=== PATIENT | female | born 1990 | race African-American/Black ===

== ENCOUNTER 2018-12-17 02:04 | Observation (INO) | payer MEDICAID ==
[~2018-12-17] VITALS: Ht 160 cm; Wt 97.5 kg
[2018-12-17] VITALS (7 sets, daily range): BP systolic 133–163; BP diastolic 102–117
[2018-12-17] MEDS ORDERED: MORPHINE SULFATE 10 MG/ML VIAL. IV PRN (03:00)
[2018-12-17] MEDS: MORPHINE SULFATE 4 MG/ML VIAL. IV PRN ×3 (03:28→10:20)
[2018-12-17] MEDS: IV RINGERS,LACTATED 1000ML 1,000 ML IV SCH ×4 (03:29→23:00)
[2018-12-17] MEDS ORDERED: METO25TA4 PO (04:42)
[2018-12-17] MEDS ORDERED: PARO40TA3 PO (07:45)
[2018-12-17] MEDS ORDERED: METO-239 PO (09:00)
[2018-12-17] MEDS ORDERED: fentaNYL PF VIAL 100 MCG/2 ML VIAL IV PRN (09:45)
[2018-12-17] MEDS ORDERED: PROCHLORPERAZINE 10 MG/2 ML VIAL. IV PRN ×2 (09:45→18:15)
[2018-12-17] MEDS ORDERED: ONDANSETRON PF 4 MG/2 ML VIAL. IV PRN ×2 (09:45→18:15)
[2018-12-17] MEDS ORDERED: MORPHINE SULFATE 2 MG/ML VIAL. IV PRN ×2 (09:45→19:15)
[2018-12-17] MEDS ORDERED: HYDROmorphone 2 MG/ML VIAL IV PRN (09:45)
[2018-12-17] MEDS ORDERED: LIDOCAINE 1% PF 2 ML VIAL. ID PRN (09:45)
[2018-12-17] MEDS ORDERED: IV RINGERS,LACTATED 1000ML 1,000 ML IV SCH (10:00)
[2018-12-17] MEDS: METOPROLOL SUCC 24HR ER 25 MG TAB.ER.24H. PO SCH (10:01)
[2018-12-17] MEDS: amLODIPine BESYLATE 10 MG TABLET PO SCH (10:08)
--- NOTE | 2018-12-17 10:37 | PDOC2 ---
CONSULT Date of Consult Date of Consult DATE: 12/17/18 TIME: 10:34 Reason for Consult Reason for Consult: ovarian cyst Referring Physician Referring Physician: Dr. Redd Identification/Chief Complaint Chief Complaint abd pain Source Source: Chart review, Patient History of Present Illness Reason for Visit: 28 y/o presented to [facility] with c/o pelvic pain that continued to worsen in the past few days. She had h/o ROV complex cyst. Recent pelvic sono indicated possible rupture of ROV cyst with some fluid in the pelvic culde sac. Pelvic sono reviewed with patient. Past Medical History Cardiovascular: No pertinent hx Pulmonary: No pertinent hx GI: No pertinent hx Heme/Onc: No pertinent hx Psych: No pertinent hx Past Surgical History Past Surgical History: No pertinent history Current Medications Current Medications Current Medications Ringer's Solution 1,000 ml @ 150 mls/hr Q6H40M IV Last administered on 12/17/18at 10:19; Start 12/17/18 at 03:00 Morphine Sulfate (Morphine Sulfate) 6 mg PRN Q2HR PRN IV PAIN; Start 12/17/18 at 03:00; Stop 12/17/18 at 03:07; Status DC Morphine Sulfate (Morphine Sulfate) 6 mg PRN Q2HR PRN IV PAIN Last administered on 12/17/18at 10:20; Start 12/17/18 at 03:07 Metoprolol Succinate (Toprol Xl) 25 mg DAILY PO Last administered on 12/17/18at 10:01; Start 12/17/18 at 09:00 Ondansetron HCl (Zofran) 4 mg PRN Q6HRS PRN IV NAUSEA/VOMITING; Start 12/17/18 at 09:45; Stop 12/17/18 at 19:00 Fentanyl Citrate (Fentanyl 2ml Vial) 25 mcg PRN Q5MIN PRN IV MILD PAIN 1-3; Start 12/17/18 at 09:45; Stop 12/17/18 at 19:00 Fentanyl Citrate (Fentanyl 2ml Vial) 50 mcg PRN Q5MIN PRN IV MODERATE TO SEVERE PAIN; Start 12/17/18 at 09:45; Stop 12/17/18 at 19:00 Morphine Sulfate (Morphine Sulfate) 1 mg PRN Q10MIN PRN IV SEVERE PAIN 7-10; Start 12/17/18 at 09:45; Stop 12/17/18 at 19:00 Ringer's Solution 1,000 ml @ 30 mls/hr Q24H IV ; Start 12/17/18 at 10:00; Stop 12/17/18 at 19:00; Status Cancel Lidocaine HCl (Xylocaine-Mpf 1% 2ml Vial) 2 ml PRN 1X PRN ID PRIOR TO IV START; Start 12/17/18 at 09:45; Stop 12/17/18 at 19:00 Hydromorphone HCl (Dilaudid) 0.5 mg PRN Q10MIN PRN IV SEV PAIN, Second choice; Start 12/17/18 at 09:45; Stop 12/17/18 at 19:00 Prochlorperazine Edisylate (Compazine) 5 mg PACU PRN PRN IV NAUSEA, MRX1; Start 12/17/18 at 09:45; Stop 12/17/18 at 19:00 Amlodipine Besylate (Norvasc) 10 mg DAILY PO Last administered on 12/17/18at 10:08; Start 12/17/18 at 10:30 Active Scripts Active Reported Metoprolol Succinate ( Xl ) (Metoprolol Succinate) 25 Mg Tab.er.24h 25 Mg PO DAILY Paroxetine Hcl 40 Mg Tablet 40 Mg PO HS Allergies Allergies: Coded Allergies: lisinopril (Verified Allergy, Intermediate, 12/17/18) lactose (Verified Adverse Reaction, Unknown, 12/17/18) ROS General: YES: Fatigue; No: Chills, Night Sweats, Malaise, Appetite, Other PSYCHOLOGICAL ROS: YES: Anxiety; No: Behavioral Disorder, Concentration difficultie, Decreased libido, Depression, Disorientation, Hallucinations, Hostility, Irritablity, Memory difficulties, Mood Swings, Obsessive thoughts, Physical abuse, Sexual abuse, Sleep disturbances, Suicidal ideation, Other Eyes: No Blurry vision, No Decreased vision, No Double vision, No Dry eyes, No Excessive tearing, No Eye Pain, No Itchy Eyes, No Loss of vision, No Photophobia, No Scotomata, No Uses contacts, No Uses glasses, No Other HEENT: No: Heacaches, Visual Changes, Hearing change, Nasal congestion, Nasal discharge, Oral lesions, Sinus pain, Sore Throat, Epistaxis, Sneezing, Snoring, Tinnitus, Vertigo, Vocal changes, Other ALLERGY AND IMMUNOLOGY: No: Hives, Insect Bite Sensitivity, Itchy/Watery Eyes, Nasal Congestion, Post Nasal Drip, Seasonal Allergies, Other Hematological and Lymphatic: No: Bleeding Problems, Blood Clots, Blood Transfusions, Brusing, Night Sweats, Pallor, Swollen Lymph Nodes, Other ENDOCRINE: No: Breast Changes, Galactorrhea, Hair Pattern Changes, Hot Flashes, Malaise/lethargy, Mood Swings, Palpitations, Polydipsia/polyuria, Skin Changes, Temperature Intolerance, Unexpected Weight Changes, Other Breast: No New/Changing Breast Lumps, No Nipple changes, No Nipple discharge, No Other Respiratory: No: Cough, Hemoptysis, Orthopnea, Pleuritic Pain, Shortness of breath, SOB with excertion, Sputum Changes, Stridor, Tachypnea, Wheezing, Other Cardiovascular: No Chest Pain, No Palpitations, No Orthopnea, No Paroxysmal Noc. Dyspnea, No Edema, No Lt Headedness, No Other Gastrointestinal: Yes Nausea, Yes Abdominal Pain Genitourinary: No Dysuria, No Frequency, No Incontinence, No Hematuria, No Retention, No Discharge, No Urgency, No Pain, No Flank Pain, No Other, No , No , No , No , No , No , No Physical Exam General: Alert, Oriented X3, Cooperative HEENT: Atraumatic Lungs: Clear to auscultation Heart: Regular rate Abdomen: Normal bowel sounds, Soft, No masses, Other (diffuse lower abd tenderness) Extremities: No edema Psych/Mental Status: Mental status NL Vitals VITALS Vital Signs Date Time Temp Pulse Resp B/P (MAP) Pulse Ox O2 Delivery O2 Flow Rate FiO2 12/17/18 10:20 Room Air 12/17/18 10:08 60 147/105 12/17/18 02:00 98.1 16 100 98.1 Assessment/Plan Assessment/Plan A: ROV complex cyst with possible rupture P: Plan for LPSC RSO today. DAVID SMITH Jr, MD Dec 17, 2018 10:37
[2018-12-17] MEDS ORDERED: DEXAMETHASONE SOD PHOS 4 MG/ML VIAL ONE (16:13)
[2018-12-17] MEDS ORDERED: SUCCINYLCHOLINE 200 MG/10 ML VIAL. ONE (16:13)
[2018-12-17] MEDS ORDERED: fentaNYL PF VIAL 100 MCG/2 ML VIAL ONE ×2 (16:13→19:14)
[2018-12-17] MEDS ORDERED: PROPOFOL 20 ML IV ONE (16:13)
[2018-12-17] MEDS ORDERED: ONDANSETRON PF 4 MG/2 ML VIAL. ONE (16:13)
[2018-12-17] MEDS ORDERED: LIDOCAINE 2% PF 5 ML VIAL. ONE (16:13)
[2018-12-17] MEDS ORDERED: ROCURONIUM 50 MG/5 ML VIAL. ONE (16:13)
[2018-12-17] MEDS ORDERED: SURGICEL HEMOSTAT 4X8 EACH. ONE (16:40)
[2018-12-17] MEDS: fentaNYL PF VIAL 100 MCG/2 ML VIAL IV PRN ×3 (16:44→18:49)
[2018-12-17] MEDS ORDERED: BUPIVACAINE-EPI 0.25%-1:200000 MPF 30 ML VIAL. INJ ONE (17:00)
--- NOTE | 2018-12-17 17:14 | NUR ---
pt had full bag of fluids when transferred down to surgery so no need for this bag at 1620. will reevaluate after surgery and pt returns to floor
[2018-12-17] MEDS ORDERED: GLYCOPYRROLATE 1 MG/5 ML VIAL. ONE (17:45)
[2018-12-17] MEDS ORDERED: NEOSTIGMINE METHYLSULFATE 5 MG/5 ML SYRINGE. ONE (17:45)
[2018-12-17] MEDS ORDERED: KETOROLAC 30 MG/ML VIAL. ONE (17:45)
[2018-12-17] MEDS ORDERED: SEVOFLURANE 61 TO 120 MINUTES. IH ONE (17:50)
--- NOTE | 2018-12-17 18:08 | PDOC ---
BRIEF OPERATIVE NOTE Date: Dec 17, 2018 Pre-Op Diagnosis ROV Complex Cyst Post-Op Diagnosis Same Procedure [facility] Fontana Anesthesia Type: General Blood Loss 10 ml Specimens Obtained Right fallopian tube and Right ovary Findings nml size uterus, nml JAMES, nml Left fallopian tube; ROV complex cyst 5 cm size Complications none Operative Note see dictation DAVID FONTANA Jr, MD Dec 17, 2018 18:07
[2018-12-17] MEDS ORDERED: diphenhydrAMINE 50 MG/ML VIAL IV PRN (18:15)
[2018-12-17] MEDS ORDERED: CALCIUM CARBONATE 500 MG TAB.CHEW PO PRN (18:15)
[2018-12-17] MEDS ORDERED: DEXTROSE 50% 25 GM / 50ML DISP.SYRIN. IV PRN (18:15)
[2018-12-17] MEDS ORDERED: 0.9 % SODIUM CHLORIDE 10 ML DISP.SYRIN. IV PRN (18:15)
[2018-12-17] MEDS ORDERED: KETOROLAC 30 MG/ML VIAL. IV PRN (18:15)
[2018-12-17] MEDS ORDERED: ZOLPIDEM 5 MG TABLET. PO PRN (18:15)
[2018-12-17] MEDS ORDERED: diphenhydrAMINE HCL 25 MG CAPSULE PO PRN (18:15)
[2018-12-17] MEDS ORDERED: fentaNYL PF VIAL 100 MCG/2 ML VIAL IVP ONE (19:10)
[2018-12-17] MEDS ORDERED: MORPHINE SULFATE 2 MG/ML VIAL. ONE (19:14)
[2018-12-17] MEDS: oxyCODONE/APAP 5/325 1 TAB TABLET PO PRN (19:25)
--- NOTE | 2018-12-17 19:47 | OP ---
DATE OF SURGERY: 12/17/2018 PREOPERATIVE DIAGNOSIS: Right ovarian complex cyst. POSTOPERATIVE DIAGNOSES: Right ovarian complex cyst. PROCEDURE: Laparoscopic RSO. SURGEON: David Fontana MD ANESTHESIA: GETA. ESTIMATED BLOOD LOSS: 10 mL. COMPLICATIONS: None. FINDINGS: Normal size uterus, normal left ovary, normal left fallopian tube, right ovarian complex cyst of about 5 cm size, normal right fallopian tube. SUMMARY: A 28-year-old 1, para 1, who represented with pelvic pain, pelvic sonogram indicated ruptured right ovarian complex cyst. The patient was counseled on the risks, benefits and expectations of laparoscopic RSO and voiced clear understanding to proceed. DESCRIPTION OF PROCEDURE: The patient was taken to surgery suite and placed in dorsal lithotomy position. She was prepped with Betadine solution for vaginal prep and ChloraPrep for abdominal prep. After adequate anesthesia, bivalve speculum was placed vaginally. The anterior lip of the cervix grasped with single tooth tenaculum. The uterine acorn manipulator was then placed. The bivalve speculum was removed. Attention was now placed on abdomen. Small transverse skin incision was made just below the umbilicus with a scalpel. The Veress needle was then placed through the infraumbilical incision site. The abdomen was allowed to insufflate with CO2 gas up to 1-1/2 liters. The Veress needle was then removed, 5 mm trocar was placed. The scope was positioned. The uterus was normal. Left fallopian tube and ovary were normal. Right fallopian tube appeared normal. Right ovary demonstrated a complex cyst at least 5 cm size that had been ruptured with minimal bleeding with additional incision sites in the left lower quadrant. A 5-mm trocar was placed as well as a 12 mm trocar placed in the midline just 2 fingerbreadths above the pubic symphysis. With the aid of Win graspers and EnSeal device, the right infundibulopelvic ligament was coagulated and dissected. The right utero-ovarian pedicle was coagulated and dissected. The rest of the right adnexa was dissected away from the right pelvic sidewall. The right fallopian tube and ovary were then removed with the Endobag. The pedicle was hemostatic. Suction irrigation was utilized to verify good hemostasis. A small amount of normal saline was left in posterior cul-de-sac. The right fallopian tube and ovary were removed with Endobag and the trocars were then removed under direct visualization. The abdomen was allowed to deflate as much as possible along with mechanical manipulation. The 12 mm trocar site was closed at the fascial layer using 2-0 Vicryl suture in a [id number] manner. The three skin incisions were closed at the skin level using 4-0 Vicryl suture in subcuticular manner. A 0.25% Marcaine with epinephrine was injected at each incision site. The uterine acorn manipulator and single tooth tenaculum was then removed. The patient tolerated the procedure well and was taken to recovery room in stable condition. Sponge and needle count correct x 3. DAVID FONTANA MD DR: LANCE/marguerite JOB#: [id number] / [id number]
[2018-12-17] MEDS: GABAPENTIN 300 MG CAPSULE. PO SCH (22:42)
[2018-12-18] MEDS: oxyCODONE/APAP 5/325 1 TAB TABLET PO PRN ×3 (01:04→13:10)
[2018-12-18] MEDS: IV RINGERS,LACTATED 1000ML 1,000 ML IV SCH (03:22)
[2018-12-18] MEDS: SIMETHICONE 80 MG TAB.CHEW PO PRN ×2 (03:26→13:10)
[2018-12-18 04:08] VITALS: BP 145/107
[2018-12-18 04:44] LABS: BASO % 0 % (0-3); EOS % 0 % (0-3); HEMATOCRIT 43.5 % (36.0-47.0); LYMPH # 0.6 x10^3/uL (1.0-4.8); LYMPH % 8 % (24-48); MEAN CORPUSCULAR HEMOGLOBIN 31 pg (25-35); MEAN CORPUSCULAR HGB CONC 34 g/dL (31-37); MEAN CORPUSCULAR VOLUME 90 fL (79-100); MONO # 0.2 x10^3/uL (0.0-1.1); MONO % 3 % (0-9); NEUT # 6.6 x10^3/uL (1.8-7.7); NEUT % 89 % (31-73); PLATELET COUNT 189 x10^3/uL (140-400); RED BLOOD COUNT 4.87 x10^6/uL (3.50-5.40); RED CELL DISTRIBUTION WIDTH 15.4 % (11.5-14.5); WHITE BLOOD COUNT 7.5 x10^3/uL (4.0-11.0)
[2018-12-18] MEDS ORDERED: DOCUSATE SODIUM 100 MG CAPSULE. PO PRN (05:30)
[2018-12-18] MEDS: GABAPENTIN 300 MG CAPSULE. PO SCH (05:58)
[2018-12-18 07:51] LABS: % BANDS 2 % (0-9); % LYMPHS 11 % (24-48); % MONOS 2 % (0-10); % SEGS 85 % (35-66); PLT ESTIMATE ADEQUATE (ADEQUATE)
[2018-12-18] MEDS: METOPROLOL SUCC 24HR ER 25 MG TAB.ER.24H. PO SCH (09:23)
[2018-12-18] MEDS: amLODIPine BESYLATE 10 MG TABLET PO SCH (09:24)
[2018-12-18] MEDS ORDERED: BENZOCAINE/MENTHOL LOZENGE. PO PRN (09:30)
[2018-12-18] MEDS ORDERED: fentaNYL PF VIAL 100 MCG/2 ML VIAL IVP PRN (09:30)
--- NOTE | 2018-12-18 11:49 | HP ---
ADMIT DATE: 12/18/2018 REASON FOR CONSULTATION: Medical management. HISTORY OF PRESENT ILLNESS: The patient is a 28-year-old -[place] female patient who presented to [facility] with a complaint of pelvic pain that continued to worsen in the past few days. She has got a history of right ovarian complex cyst. Recent pelvic sonogram indicated possible rupture of right ovarian cyst and some fluid in the pelvic cul-de-sac, and therefore, she was transferred to [facility] to consult the commercial illustrator. PAST MEDICAL HISTORY: Significant for hypertension, anxiety. PAST SURGICAL HISTORY: Significant for Castleman disease diagnosed in 2006. At that time, she was transferred to [facility] and underwent lymphadenectomy. ALLERGIES: She is allergic to LISINOPRIL and LACTOSE. MEDICATIONS: She is currently on metoprolol succinate 25 mg once a day, paroxetine 40 mg once a day as well as Norvasc and Percocet. FAMILY HISTORY: She has one brother who is older and has schizophrenia and bipolar disorder. Father is alive at age of 55, has diabetes and bipolar disorder. Mother is alive at age of 49, has hypothyroidism. SOCIAL HISTORY: She is single, has one daughter. She does not smoke. Drinks alcohol occasionally. Does not do any drugs. 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 PHYSICAL EXAMINATION: GENERAL: When I saw her this morning, she looked well and was clearly in no apparent respiratory distress. No pallor, jaundice, cyanosis. No thyromegaly. No jugular venous distention. No limb edema. VITAL SIGNS: Her heart rate was 80, blood pressure was 145/107, temperature was 97.6, respiratory rate was 16, and oxygen saturation was 99% on room air. HEAD, EYES, EARS, NOSE AND THROAT: Showed normocephalic, atraumatic. NECK: Supple. HEART: Showed normal first and second heart sounds with no gallop, rub or murmur. CHEST: Clear to auscultation. No crepitation or rhonchi. ABDOMEN: Distended, soft, nontender. No guarding or rigidity. No organomegaly. All hernial orifice intact. Bowel sounds normal. NEUROLOGIC: She was awake, alert, responding appropriately. All cranial nerves intact. EXTREMITIES: She moves extremities without difficulty. She ambulates without assistance or assistive devices. LABORATORY DATA: Her lab work showed a white cell count 7500, hemoglobin 15, hematocrit 44, MCV 90 and platelet count of 189,000. ASSESSMENT AND PLAN: This is a 28-year-old -[place] female patient who underwent laparoscopic right salpingo-oophorectomy successfully. Intraoperative findings showed that she has right ovarian complex cyst about 5 cm in size with normal right fallopian tube, normal sized uterus, normal left ovary and normal left fallopian tube. Other medical problems include hypertension, for which she is on metoprolol and Norvasc and anxiety, for which she is on paroxetine. She has also some sore throat, for which she was started on Cepacol lozenges, and as she is still having pain, we will add fentanyl 50 mcg IV every 3 hours for the time being. RENETTA GUPTA MD DR: LON/marguerite JOB#: [id number] / [id number]
--- NOTE | 2018-12-18 12:30 | PDOC ---
SURGICAL PROGRESS NOTE Subjective Pt. feeling well. No complaints. Vital Signs Vital Signs Date Time Temp Pulse Resp B/P (MAP) Pulse Ox O2 Delivery O2 Flow Rate FiO2 12/18/18 10:48 Room Air 12/18/18 09:24 84 151/104 12/18/18 05:58 99 12/18/18 04:08 97.6 16 97.6 12/17/18 18:18 10. I&O Intake and Output 12/18/18 07:00 Intake Total 1550 ml Output Total 1910 ml Balance -360 ml Intake Oral 700 ml IV Total 850 ml Output Urine Total 1900 ml Estimated Blood Loss 10 ml # Voids 2 PATIENT HAS A HERNADEZ: No General: Alert, Oriented X3, Cooperative HEENT: Atraumatic Lungs: Clear to auscultation Heart: Regular rate Abdomen: Normal bowel sounds, Soft, No masses Psych/Mental Status: Mental status NL Labs Laboratory Tests Test 12/18/18 03:40 White Blood Count 7.5 x10^3/uL (4.0-11.0) Red Blood Count 4.87 x10^6/uL (3.50-5.40) Hemoglobin 15.0 g/dL (12.0-15.5) Hematocrit 43.5 % (36.0-47.0) Mean Corpuscular Volume 90 fL (79-100) Mean Corpuscular Hemoglobin 31 pg (25-35) Mean Corpuscular Hemoglobin Concent 34 g/dL (31-37) Red Cell Distribution Width 15.4 % (11.5-14.5) Platelet Count 189 x10^3/uL (140-400) Neutrophils (%) (Auto) 89 % (31-73) Lymphocytes (%) (Auto) 8 % (24-48) Monocytes (%) (Auto) 3 % (0-9) Eosinophils (%) (Auto) 0 % (0-3) Basophils (%) (Auto) 0 % (0-3) Neutrophils # (Auto) 6.6 x10^3/uL (1.8-7.7) Lymphocytes # (Auto) 0.6 x10^3/uL (1.0-4.8) Monocytes # (Auto) 0.2 x10^3/uL (0.0-1.1) Eosinophils # (Auto) 0.0 x10^3/uL (0.0-0.7) Basophils # (Auto) 0.0 x10^3/uL (0.0-0.2) Segmented Neutrophils % 85 % (35-66) Band Neutrophils % 2 % (0-9) Lymphocytes % 11 % (24-48) Monocytes % 2 % (0-10) Platelet Estimate Adequate (ADEQUATE) Large Platelets Occ Laboratory Tests Test 12/18/18 03:40 White Blood Count 7.5 x10^3/uL (4.0-11.0) Red Blood Count 4.87 x10^6/uL (3.50-5.40) Hemoglobin 15.0 g/dL (12.0-15.5) Hematocrit 43.5 % (36.0-47.0) Mean Corpuscular Volume 90 fL (79-100) Mean Corpuscular Hemoglobin 31 pg (25-35) Mean Corpuscular Hemoglobin Concent 34 g/dL (31-37) Red Cell Distribution Width 15.4 % (11.5-14.5) Platelet Count 189 x10^3/uL (140-400) Neutrophils (%) (Auto) 89 % (31-73) Lymphocytes (%) (Auto) 8 % (24-48) Monocytes (%) (Auto) 3 % (0-9) Eosinophils (%) (Auto) 0 % (0-3) Basophils (%) (Auto) 0 % (0-3) Neutrophils # (Auto) 6.6 x10^3/uL (1.8-7.7) Lymphocytes # (Auto) 0.6 x10^3/uL (1.0-4.8) Monocytes # (Auto) 0.2 x10^3/uL (0.0-1.1) Eosinophils # (Auto) 0.0 x10^3/uL (0.0-0.7) Basophils # (Auto) 0.0 x10^3/uL (0.0-0.2) Segmented Neutrophils % 85 % (35-66) Band Neutrophils % 2 % (0-9) Lymphocytes % 11 % (24-48) Monocytes % 2 % (0-10) Platelet Estimate Adequate (ADEQUATE) Large Platelets Occ Problem List Problems Medical Problems: (1) Ovarian cyst, right Status: Acute Assessment/Plan A: POD#1 s/p LPSC RSO P: D/c home. DAVID SMITH Jr, MD Dec 18, 2018 12:30
[2018-12-18] MEDS ORDERED: OXYC1TAB15 PO (12:31)
--- NOTE | 2018-12-18 12:32 | DISCH ---
DISCHARGE INSTRUCTIONS Condition on Discharge Condition on Discharge: Stable Activity After Discharge Activity Instructions for Disc: Activity as tolerated Lifting Instructions after Dis: No heavy lifting Driving Instructions after Dis: Do not drive today Diet after Discharge Diet after Discharge: Regular Contacting the DRBarbie after DC Call your doctor for: If your condition worsens Follow-Up Follow up with: Dr. Fontana in 1 wk DAVID FONTANA Jr, MD Dec 18, 2018 12:32
[2018-12-18 13:22] VITALS: BP 160/110
[2018-12-18 14:30] VITALS: BP 146/102
[2018-12-18] MEDS ORDERED: FLU VAX QS 2019-20 (36MOS+)/PF 0.5 ML SYRINGE. VAX IM ONE (14:45)
--- NOTE | 2018-12-18 15:36 | NUR ---
Hypertension Dr Fontana called at 1430 regarding multiple high blood pressures, see flow sheet. Patient states she has medications at home and does need script. Orders for patient to follow up this week with Primary care doctor regarding BP medication, then follow up in his office in 1 week. Patient educated on s/s of high blood pressure, verbalized understanding.
--- NOTE | 2018-12-18 16:31 | NUR ---
Discharge Discharge and incisional care instructions given to patient at this time, no questions or concerns noted. Patient ambulated off unit with all belongings.
--- NOTE | 2018-12-19 23:06 | PATHOLOGY ---
[facility] Accession Number: [id number] . 01 Material submitted: . ovary - RIGHT OVARY AND FALLOPIAN TUBE. Modifiers: right . 01 Clinical history: . Right ovary complex cyst. . 02 Diagnosis: "Right ovary and right fallopian tube", right salpingo-oophorectomy: - Ovary, right, with multiple follicular cysts, one hemorrhagic follicular cyst, resolving corpus luteum and corpora albicantia. - Fallopian tube, right, with paratubal cysts. . (CLW:mm; 12/19/2018) [facility] 12/19/2018 1629 Local . 02 Electronically signed: . Mildred Medina MD, Pathologist NPI- [id number] . 01 Gross description: . Received in formalin labeled "Justin Gloria, right ovary and right fallopian tube" is a salpingo-oophorectomy specimen consisting of an intact pink-ashley ovary weighing 20 g and measuring 5.2 x 3.5 x 2.3 cm. The external surface is slightly nodular and cystic in appearance, and the ovary is sectioned to reveal a multicystic cut surface, with cysts ranging from 0.2-1.7 cm in greatest dimension. The cysts contain clear watery fluid, with one cyst containing mucinous fluid and one cysts containing hemorrhagic material. No papillary excrescences are identified. The uninvolved ovarian parenchyma is ashley-white and homogeneous. Attached to the ovary is a pink-ashley submitted fallopian tube measuring 5.0 cm in length and 0.6 cm in diameter. The external surface is smooth with multiple paratubal cysts ranging from 0.1-0.2 cm. Upon sectioning, the fallopian tube displays a pinpoint lumen. Roofing Apprentice sections of the specimen are submitted as follows: A1-A5 dental sales representative ovary A6 dental sales representative fallopian tube and entire fimbriated end ([facility]; 12/18/2018) [facility] 12/18/2018 1722 Local . 02 Pathologist provided ICD-10: N83.01, N83.8 . 02 CPT . 911340 Specimen Comment: A courtesy copy of this report has been sent to [phone], [phone] Specimen Comment: [id number] Specimen Comment: Report sent to / DR ZAMARRIPA Performed at: [facility] [address] [facility] [address], [place] [id number] MD Johan Hudson MD Phone: [phone] Performed at: 02 [facility] [address] [place], [place] [id number] MD Flaco Quijano MD Phone: [phone]
== END 2018-12-18 16:41 | disposition home or self-care (01) ==
LOC: INTOOBSV 02:04 → 3 NORTH 02:04
PROVIDERS: ADMIT Obstetrics & Gynecology; ATTEND Obstetrics & Gynecology
DX: N83.291 Other ovarian cyst, right side (principal); I10 Essential (primary) hypertension; F41.9 Anxiety disorder, unspecified; Z23 Encounter for immunization
CPT/HCPCS: 36415; 58661; 85007; 85025; 88305; 90471; 90686; 96374; 96375; 96376; A7015; G0378; G0379; J0330; J0696; J1100; J1885; J2001; J2270; J2704; J2710; J3010; J3490; J7030; J7120; J2405

== ENCOUNTER 2019-08-19 17:17 | Emergency (ER) | payer MEDICAID ==
[~2019-08-19] VITALS: Ht 170.2 cm; Wt 95.0 kg
[~2019-08-19 17:17] MED LIST: METO-239 PO; METO25TA4 PO; OXYC1TAB15 PO; PARO40TA3 PO
--- NOTE | 2019-08-19 18:31 | PHYS DOC ---
Past Medical History Past Medical History: Hypertension Additional Past Medical Histor: TMJ (NHUNG HALL APRN) Past Surgical History: No Surgical History (NHUNG HALL APRN) Smoking Status: Never Smoker Alcohol Use: None Drug Use: None (NHUNG HALL APRN) General Adult EDM: Chief Complaint: FEVER HPI: HPI: Patient is a 28 year old female who presents with complaints of feeling tired after walking around at approximately 4:00 this afternoon. Patient states when she became tired it concerned her and she immediately called the ambulance who brought her to the emergency department. The patient states after she arrived here in the emergency department her symptoms of feeling tired have resolved and she no longer wants to stay and be evaluated in the emergency department. Patient denies fever, chills, vision changes, nasal congestion or sore throat, cough or shortness of breath, denies chest pain or swelling or edema, denies abdominal pain, denies nausea, vomiting, diarrhea, stool changes, or blood in her stool. Patient denies back pain or joint aches. Patient denies skin rashes. Patient denies bowel or bladder disturbances. Patient denies headaches, focal weaknesses, or sensory changes. Patient denies any swelling of her glands. Patient denies any recent depression or anxieties or changes in her life. (NHUNG HALL APRN) Review of Systems: Review of Systems: Constitutional: Denies fever or chills. Eyes: Denies change in visual acuity. HENT: Denies nasal congestion or sore throat. Respiratory: Denies cough or shortness of breath. Cardiovascular: Denies chest pain or edema. GI: Denies abdominal pain, nausea, vomiting, bloody stools or diarrhea. : Denies dysuria. Musculoskeletal: Denies back pain or joint pain. Integument: Denies rash. Neurologic: Denies headache, focal weakness or sensory changes. Endocrine: Denies polyuria or polydipsia. Lymphatic: Denies swollen glands. Psychiatric: Denies depression or anxiety. (NHUNG HALL APRN) Heart Score: Risk Factors: Risk Factors: DM, Current or recent (<one month) smoker, HTN, HLP, family history of CAD, obesity. Risk Scores: Score 0 - 3: 2.5% MACE over next 6 weeks - Discharge Home Score 4 - 6: 20.3% MACE over next 6 weeks - Admit for Clinical Observation Score 7 - 10: 72.7% MACE over next 6 weeks - Early Invasive Strategies (NHUNG HALL APRN) Family History: Family History: Patient denies any family history related to this visit. (NHUNG HALL APRN) Current Medications: Patient states she takes a 25 mg metoprolol at home every evening for blood pressure. Patient denies taking other prescription medications at home. (NHUNG HALL APRN) Allergies: Allergies: Allergies Coded Allergies Type Severity Reaction Last Updated Verified lisinopril Allergy Intermediate 12/17/18 Yes lactose Adverse Reaction Unknown 12/17/18 Yes (NHUNG HALL APRN) Physical Exam: PE: Constitutional: Well developed, well nourished, no acute distress, non-toxic appearance. HENT: Normocephalic, atraumatic, bilateral external ears normal, oropharynx moist, no oral exudates, nose normal. Eyes: PERRLA, EOMI, conjunctiva normal, no discharge. Pupils 4 mm bilateral Neck: Normal range of motion, no tenderness, supple, no stridor. Cardiovascular:Heart rate regular rhythm, no murmur, heart sounds S1-S2, no abnormalities noted per auscultation, Lungs & Thorax: Bilateral breath sounds clear to auscultation all lung buckner. Abdomen: Bowel sounds normal all 4 quadrants, soft, no tenderness, no masses, no pulsatile masses. Skin: Warm, dry, no erythema, no rash. Back: No tenderness, no CVA tenderness. Extremities: No tenderness, no cyanosis, no clubbing, ROM intact, no edema. Neurologic: Alert and oriented X 3, normal motor function, normal sensory function, no focal deficits noted, normal ambulation around room. Psychologic: Affect normal, judgement normal, mood normal. Normal affect. (NHUNG HALL APRN) Current Patient Data: Vital Signs: Vital Signs Date Time Temp Pulse Resp B/P (MAP) Pulse Ox O2 Delivery O2 Flow Rate FiO2 08/19/19 18:10 98.6 98.6 08/19/19 17:20 109 18 133/92 (106) 96 Room Air (NHUNG HALL APRN) EKG: EKG: [] (NHUNG HALL APRN) Radiology/Procedures: Radiology/Procedures: [] (NHUNG HALL APRN) Course & Med Decision Making: Course & Med Decision Making Pertinent Labs and Imaging studies reviewed. (See chart for details) 28-year-old patient arrives to the emergency department by ambulance initially complained of feeling tired after walking around her home at approximately 4:00 this afternoon. Patient arrives into the emergency department room and evaluated, patient states that her symptoms have resolved and she no longer wishes to be seen in the emergency department. Patient did however agree to a physical examination. Vital signs were reviewed and normal given patient's history. Patient's physical examination was negative. Patient was seen here 2 days ago and was noted to have a flat affect during examination. Patient did not have a flat affect today. Patient denied HI or SI. Patient denied any anxieties or depressions or recent life changes. Patient ambulated with normal gait around the room. Patient was discharged to home with instructions continue home medications and to return to ER for further problems or worsening symptoms. Patient was agreeable to discharge and home instructions. Patient had no other questions. Patient discharged to home with self-care. (NHUNG HALL APRN) Dragon Disclaimer: Dragon Disclaimer: This electronic medical record was generated, in whole or in part, using a voice recognition dictation system. (NHUNG HALL APRN) Departure Departure Impression: Primary Impression: Encounter for medical screening examination Additional Impression: Feared condition not demonstrated Disposition: 01 HOME, SELF-CARE Condition: GOOD Referrals: MAURICIO ZAMARRIPA MD (PCP) Patient Instructions: Medical Screening Exam Additional Instructions: You called an ambulance and came to the ER for feeling tired. You have indicat ed that you no longer feel tired and do not wish to have any further evaluation or treatment done in the emergency department. Your physical examination was within normal limits. Please continue to take your home medications as prescribed by your doctor. Return to the emergency department for any further injuries or concerns. Justicifation of Admission Dx: Justifications for Admission: Justification of Admission Dx: N/A (NHUNG HALL APRN) Attending Signature Attending Signature I have participated in the care of this patient and I have reviewed and agree with all pertinent clinical information above including history, exam, and recommendations. (CAMI WALDRON DO) NHUNG HALL APRN Aug 19, 2019 18:31 CAMI WALDRON DO Aug 20, 2019 01:05
[2019-08-19 18:58] VITALS: BP 152/99
== END 2019-08-19 19:02 | disposition home or self-care (01) ==
LOC: ER 17:17
DX: Z71.1 Person with feared health complaint in whom no diagnosis is made (principal); I10 Essential (primary) hypertension; Z91.011 Allergy to milk products; Z88.8 Allergy status to other drugs, medicaments and biological substances
CPT/HCPCS: 99284

== ENCOUNTER 2019-08-21 09:10 | Emergency (ER) | payer MEDICAID ==
[~2019-08-21] VITALS: Ht 160 cm; Wt 94.5 kg
[2019-08-21 10:18] LABS: BILIRUBIN,URINE SMALL (NEG); CLARITY,URINE CLEAR; COLOR,URINE AMBER; NITRITE,URINE NEGATIVE (NEG); PROTEIN,URINE NEGATIVE (NEG-TRACE)
[2019-08-21 10:33] LABS: BACTERIA,URINE FEW /HPF (0-FEW); RBC,URINE 0 /HPF (0-2); SQUAMOUS EPITHELIAL CELL,UR MANY /LPF
--- NOTE | 2019-08-21 11:02 | RAD ---
Examination: PELVIS COMPLETE History: Reason: pelvic pain / Spl. Instructions: / History: Comparison/Correlation: 03/02/2019 pelvic ultrasound exam Findings: Transabdominal pelvic ultrasound exam was performed. Uterus measures 6.7 cm x 5.4 cm x 4 cm. The endometrial thickness is 0.8 cm. Myometrium is normal. No intrauterine gestation or intrauterine fluid collection. Absence of the right ovary consistent with surgical history noted. Left ovary measures 5 cm x 3.2 cm x 3.4 cm. Flow is evident involving the left ovary. Left ovary and 3 cm diameter complex cyst is present. No pelvic free fluid. Impression: Left adnexal complex cyst which is most compatible with hemorrhagic corpus luteum cyst. Consider ultrasound follow-up in 16 weeks to 20 weeks to assess resolution. Electronically signed by: Pasquale Gonsalez MD (08/21/2019 10:59 AM) [id number]
[2019-08-21 11:56] VITALS: BP 154/111
[2019-08-21] MEDS ORDERED: IV NORMAL SALINE 1000ML BAG 1,000 ML IV ONE (12:00)
[2019-08-21] MEDS ORDERED: CEPH-264 PO (12:03)
--- NOTE | 2019-08-21 12:03 | PHYS DOC ---
Past Medical History Past Medical History: Hypertension Additional Past Medical Histor: TMJ Past Surgical History: Other Additional Past Surgical Histo: right oopherectomy Smoking Status: Never Smoker Alcohol Use: Occasionally Drug Use: None General Adult EDM: Chief Complaint: PELVIC PAIN HPI: HPI: Patient is a 28 year old female who presents with lower pelvic pain for 3 days. Patient rates pain 7 out of 10. Patient is also reporting foul odor to her urine. patient reports that she was seen at [facility] in the emergency department last week and had a pelvic exam performed. Patient reports that she was diagnosed with bacterial vaginosis and a urinary tract infection and was sent home with Flagyl. Patient reports that she has been taking her Flagyl for 1 week but has not finished it. Patient reports that she received her results from her STD testing performed at [facility] and they were negative for gonorrhea and chlamydia. Patient denies vaginal discharge, vaginal bleeding, itching, dysuria, urinary frequency, abdominal pain, nausea, vomiting, diarrhea, chest pain, shortness of air, or fevers. She reports the pain does not radiate, she describes it as a cramping pain, nothing makes the pain worse but the pain is improved with application of a heating pad. Review of Systems: Review of Systems: Constitutional: Denies fever or chills. [] Respiratory: Denies cough or shortness of breath. [] Cardiovascular: Denies chest pain or edema. [] GI: Denies nausea, vomiting, or diarrhea; see HPI : Denies dysuria, see HPI. [] Musculoskeletal: Denies back pain or joint pain. [] Integument: Denies rash. [] Lymphatic: Denies swollen glands. [] Psychiatric: Denies depression or anxiety. [] Heart Score: Risk Factors: Risk Factors: DM, Current or recent (<one month) smoker, HTN, HLP, family history of CAD, obesity. Risk Scores: Score 0 - 3: 2.5% MACE over next 6 weeks - Discharge Home Score 4 - 6: 20.3% MACE over next 6 weeks - Admit for Clinical Observation Score 7 - 10: 72.7% MACE over next 6 weeks - Early Invasive Strategies Current Medications: Current Medications Medications (Trade) Dose Ordered Sig/Maury Start Time Stop Time Status Last Admin Dose Admin Sodium Chloride 1,000 ml @ 1,000 mls/hr 1X ONCE 08/21/19 11:45 08/21/19 12:44 UNV Allergies: Allergies: Allergies Coded Allergies Type Severity Reaction Last Updated Verified lisinopril Allergy Intermediate 12/17/18 Yes lactose Adverse Reaction Unknown 12/17/18 Yes Physical Exam: PE: Constitutional: Well developed, well nourished, no acute distress, non-toxic appearance. [] HENT: Normocephalic, atraumatic, bilateral external ears normal, nose normal. [] Eyes: PERRLA, EOMI, conjunctiva normal, no discharge. [] Neck: Normal range of motion, no stridor. [] Cardiovascular:Heart rate regular rhythm Lungs & Thorax: Respirations even and unlabored, no retractions, no respiratory distress Abdomen: soft and flat, nontender, no palpable masses, suprapubic tenderness to palpation Back: No CVA tenderness Skin: Warm, dry, no erythema, no rash. [] Extremities: No cyanosis, ROM intact, no edema. [] Neurologic: Alert and oriented X 3. [] Psychologic: Affect normal, judgement normal, mood normal. [] Current Patient Data: Labs: Laboratory Tests Test 08/21/19 09:50 08/21/19 09:59 Urine Collection Type Unknown Urine Color Carie Urine Clarity Clear Urine pH 6.0 (<5.0-8.0) Urine Specific Boring 1.025 (1.000-1.030) Urine Protein Negative mg/dL (NEG-TRACE) Urine Glucose (UA) Negative mg/dL (NEG) Urine Ketones (Stick) >=80 mg/dL (NEG) Urine Blood Negative (NEG) Urine Nitrite Negative (NEG) Urine Bilirubin Small (NEG) Urine Urobilinogen Dipstick 1.0 mg/dL (0.2 mg/dL) Urine Leukocyte Esterase Moderate (NEG) Urine RBC 0 /HPF (0-2) Urine WBC 5-10 /HPF (0-4) Urine Squamous Epithelial Cells Many /LPF Urine Bacteria Few /HPF (0-FEW) POC Urine HCG, Qualitative Hcg negative (Negative) Vital Signs: Vital Signs Date Time Temp Pulse Resp B/P (MAP) Pulse Ox O2 Delivery O2 Flow Rate FiO2 08/21/19 09:48 98.3 81 16 158/113 (128) 99 Room Air 98.3 EKG: EKG: [] Radiology/Procedures: Radiology/Procedures: [] Course & Med Decision Making: Course & Med Decision Making Pertinent Labs and Imaging studies reviewed. (See chart for details) Patient is a 28-year-old female who comes in for bilateral pelvic pain that started 3 days ago, pt was evaluated at [facility] ER for pelvic pain. I contacted [facility] to obtain lab results from her visit. RN at [facility] reports that her STD testing was negative and she was sent home with Flagyl and Xanax for anxiety. Work-up today included a urinalysis, hCG, pelvic ultrasound. The urinalysis showed greater than 80 ketones, likely causing the foul odor to her urine. Will order a saline lock and 1 L of fluids. The urinalysis is also positive for mo derate leukocytes, 5-10 white blood cells, few bacteria. The pelvic ultrasound showed a 3 cm left adnexal hemorrhagic cyst, patient does have a history of the cyst. Will prescribe KEflex 500 BID x5 days, encourage increased clear fluids, and avoidance of bladder irritants. PT verbalized an understanding of home care, medications, follow-up, and return to ED instructions and was in agreement with the plan of care. [] Dragon Disclaimer: Dragon Disclaimer: This electronic medical record was generated, in whole or in part, using a voice recognition dictation system. Departure Departure Impression: Primary Impression: UTI (urinary tract infection) Qualified Codes: N39.0 - Urinary tract infection, site not specified Additional Impression: Left ovarian cyst Disposition: HOME, SELF-CARE Condition: STABLE Referrals: LUIS ALBERTO ZAMARRIPA MD (PCP) Patient Instructions: Ovarian Cyst, [id number], Urinary Tract Infection, [id number] Additional Instructions: Fill prescription(s) and use as directed. Avoid bladder irritants such as caffeine, carbonation, and spicy foods. Increase clear fluids. Follow up with your primary care doctor if symptoms persist, return to the ER if symptoms worsen. Also recommend repeat evaluation of ovarian cyst in 16-20 weeks. Scripts Cephalexin (KEFLEX) 500 Mg Capsule 500 MG PO BID for 5 Days, #10 CAP 0 Refills Prov: MURPHY NETTLES BRASS FINISHER 08/21/19 Justicifation of Admission Dx: Justifications for Admission: Justification of Admission Dx: N/A MURPHY NETTLES APRN Aug 21, 2019 12:03
== END 2019-08-21 12:59 | disposition home or self-care (01) ==
LOC: ER 09:10
DX: N39.0 Urinary tract infection, site not specified (principal); N83.202 Unspecified ovarian cyst, left side; R10.2 Pelvic and perineal pain; I10 Essential (primary) hypertension; Z98.890 Other specified postprocedural states
CPT/HCPCS: 76856; 81001; 81025; 99284; J7030

== ENCOUNTER 2019-08-23 09:41 | Emergency (ER) | payer MEDICAID ==
[~2019-08-23] VITALS: Ht 160 cm; Wt 94.5 kg
[~2019-08-23 09:41] MED LIST changes: +CEPH-264 PO
[2019-08-23 11:16] LABS: BASO % 1 % (0-3); EOS % 0 % (0-3); HEMATOCRIT 40.4 % (36.0-47.0); HEMOGLOBIN 13.9 g/dL (12.0-15.5); LYMPH # 1.2 x10^3/uL (1.0-4.8); LYMPH % 19 % (24-48); MEAN CORPUSCULAR HEMOGLOBIN 32 pg (25-35); MEAN CORPUSCULAR HGB CONC 35 g/dL (31-37); MEAN CORPUSCULAR VOLUME 92 fL (79-100); MONO # 0.6 x10^3/uL (0.0-1.1); MONO % 9 % (0-9); NEUT # 4.5 x10^3/uL (1.8-7.7); NEUT % 71 % (31-73); PLATELET COUNT 189 x10^3/uL (140-400); RED BLOOD COUNT 4.41 x10^6/uL (3.50-5.40); RED CELL DISTRIBUTION WIDTH 12.8 % (11.5-14.5); WHITE BLOOD COUNT 6.3 x10^3/uL (4.0-11.0)
[2019-08-23 11:17] LABS: BILIRUBIN,URINE NEGATIVE (NEG); CLARITY,URINE CLEAR; COLOR,URINE YELLOW; NITRITE,URINE NEGATIVE (NEG); PH,URINE 5.5 (<5.0-8.0); PROTEIN,URINE NEGATIVE (NEG-TRACE); UROBILINOGEN,URINE 0.2 mg/dL (0.2 mg/dL)
[2019-08-23 11:30] LABS: BACTERIA,URINE MODERATE /HPF (0-FEW); SQUAMOUS EPITHELIAL CELL,UR MOD /LPF
--- NOTE | 2019-08-23 11:30 | PHYS DOC ---
Past Medical History Past Medical History: Anxiety, Depression, Hypertension Additional Past Medical Histor: TMJ Past Surgical History: Other Additional Past Surgical Histo: right oopherectomy Smoking Status: Never Smoker Alcohol Use: Occasionally Drug Use: None General Adult EDM: Chief Complaint: Chest pain HPI: HPI: This is a pleasant 29-year-old female presents emergency department today with chest pain. She describes it as a sharp shooting pain that is nonradiating. It started within the past 24 hours, more this morning. She denies a history of unilateral leg swelling hemoptysis or recent surgery or immobilization. She denies history of PE or DVT. She has a history of high blood pressure but denies diabetes high cholesterol. She denies smoking. Review of systems is negative for abdominal pain vomiting fevers chills. All other review of systems negative. ED course: 29-year-old female presented emerge department today with chest pain. EKG obtained and reviewed by myself shows sinus rhythm with a regular rate. ST segments congruent. Not suggestive of ACS. No previous for comparison at this time. CBC unremarkable. Chemistry panel unremarkable. Troponin within normal limits. I had sent a d-dimer and because her blood pressure was elevated I was going to give her a dose of IV labetalol however the patient refuses for us to be able to do this test or give this medication. She understands the risk of and disability and understands it we have not excluded blood clot from the differential diagnosis. She accepts this risk and will sign out AMA. She can follow-up with her doctor later today for an alternative. In either case she should follow-up with her doctor today or tomorrow and she should return if she is willing to complete her work-up here. We would be happy to have her back. Heart Score: HEART Score for Chest Pain: HEART Score for Chest Pain Response (Comments) Value History Slighlty/Non-Suspicious 0 ECG Normal 0 Age < 45 0 Risk Factors 1 or 2 Risk Factors 1 Troponin < Normal Limit 0 Total 1 Risk Factors: Risk Factors: DM, Current or recent (<one month) smoker, HTN, HLP, family history of CAD, obesity. Risk Scores: Score 0 - 3: 2.5% MACE over next 6 weeks - Discharge Home Score 4 - 6: 20.3% MACE over next 6 weeks - Admit for Clinical Observation Score 7 - 10: 72.7% MACE over next 6 weeks - Early Invasive Strategies Allergies: Allergies: Allergies Coded Allergies Type Severity Reaction Last Updated Verified lisinopril Allergy Intermediate 12/17/18 Yes lactose Adverse Reaction Unknown 12/17/18 Yes Physical Exam: PE: Constitutional: Well developed, well nourished, no acute distress, non-toxic appearance. [] HENT: Normocephalic, atraumatic, bilateral external ears normal, oropharynx moist, no oral exudates, nose normal. [] Eyes: PERRLA, EOMI, conjunctiva normal, no discharge. [] Neck: Normal range of motion, no tenderness, supple, no stridor. Cardiovascular:Heart rate regular rhythm, no murmur [] Lungs & Thorax: Bilateral breath sounds clear to auscultation [] Abdomen: Bowel sounds normal, soft, no tenderness, no masses, no pulsatile masses. Skin: Warm, dry, no erythema, no rash. [] Back: No tenderness, no CVA tenderness. Extremities: No tenderness, no cyanosis, no clubbing, ROM intact, no edema. [] Neurologic: Alert and oriented X 3, normal motor function, normal sensory function, no focal deficits noted. [] Psychologic: Affect normal, judgement normal, mood normal. [] Current Patient Data: Labs: Laboratory Tests Test 08/23/19 11:03 POC Urine HCG, Qualitative Borderline hcg level Vital Signs: Vital Signs Date Time Temp Pulse Resp B/P (MAP) Pulse Ox O2 Delivery O2 Flow Rate FiO2 08/23/19 09:53 98.1 79 16 142/90 (107) 99 Room Air 98.1 EKG: EKG: [] Radiology/Procedures: Radiology/Procedures: [] Course & Med Decision Making: Course & Med Decision Making Pertinent Labs and Imaging studies reviewed. (See chart for details) [] Dragon Disclaimer: [employer] Disclaimer: This electronic medical record was generated, in whole or in part, using a voice recognition dictation system. Departure Departure Impression: Primary Impression: Chest pain Disposition: AGAINST MEDICAL ADVICE Condition: GUARDED Referrals: LUIS ALBERTO ZAMARRIPA MD (PCP) Patient Instructions: Chest Pain (Nonspecific) Justicifation of Admission Dx: Justifications for Admission: Justification of Admission Dx: JULIET Myers MD Aug 23, 2019 11:30
[2019-08-23 11:31] LABS: RBC,URINE 0 /HPF (0-2)
[2019-08-23 11:36] LABS: CALCIUM 8.9 mg/dL (8.5-10.1); CREATININE 0.8 mg/dL (0.6-1.0)
[2019-08-23 11:37] LABS: GFR 102.6; POTASSIUM 4.1 mmol/L (3.5-5.1)
[2019-08-23 11:45] LABS: ALBUMIN 3.8 g/dL (3.4-5.0); DIRECT BILIRUBIN 0.1 mg/dL (0.0-0.2); TOTAL BILIRUBIN 0.7 mg/dL (0.2-1.0); TOTAL PROTEIN 7.2 g/dL (6.4-8.2)
[2019-08-23] MEDS ORDERED: LABETALOL 20 MG/4 ML DISP.SYRIN. IVP ONE (11:45)
[2019-08-23 12:07] VITALS: BP 170/119
[2019-08-23 12:08] LABS: U PREG PATIENT NEGATIVE (NEG)
[2019-08-23] MEDS ORDERED: ACETAMINOPHEN 325 MG TABLET. PO ONE (12:30)
--- NOTE | 2019-08-26 06:23 | EKG ---
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
== END 2019-08-23 12:43 | disposition left against medical advice (07) ==
LOC: ER 09:41
DX: R07.89 Other chest pain (principal); F41.9 Anxiety disorder, unspecified; F32.9 Major depressive disorder, single episode, unspecified; I10 Essential (primary) hypertension; Z88.6 Allergy status to analgesic agent; Z91.011 Allergy to milk products
CPT/HCPCS: 36415; 80048; 80076; 81001; 81025; 83690; 84484; 85025; 87086; 93005; 99284

== ENCOUNTER 2019-08-23 13:09 | Emergency (ER) | payer MEDICAID ==
[~2019-08-23] VITALS: Ht 160 cm; Wt 101.8 kg
--- NOTE | 2019-08-23 13:42 | PHYS DOC ---
Past Medical History Past Medical History: Anxiety, Depression, Hypertension Additional Past Medical Histor: TMJ Past Surgical History: Other Additional Past Surgical Histo: right oopherectomy Smoking Status: Never Smoker Alcohol Use: Occasionally Drug Use: None General Adult EDM: Chief Complaint: ANXIETY/PANIC ATTACK HPI: HPI: 29-year-old female who just had signed out AMA comes back for completing her therapy. We had worked her up because she was having chest pain. She had a normal EKG with a negative troponin normal chest x-ray. We were wanting to get a d-dimer test but she had refused and we are also wanting to give the patient labetalol for her blood pressure. She is willing to continue her care. Her chest pain has come back, and its moderate currently. No leaving factors. Review of systems negative for abdominal pain vomiting fevers chills. All other review of systems negative ED course: 29-year-old female presenting back to complete her work-up in the emergency department. Heart Score: Risk Factors: Risk Factors: DM, Current or recent (<one month) smoker, HTN, HLP, family history of CAD, obesity. Risk Scores: Score 0 - 3: 2.5% MACE over next 6 weeks - Discharge Home Score 4 - 6: 20.3% MACE over next 6 weeks - Admit for Clinical Observation Score 7 - 10: 72.7% MACE over next 6 weeks - Early Invasive Strategies Allergies: Allergies: Allergies Coded Allergies Type Severity Reaction Last Updated Verified lisinopril Allergy Intermediate 12/17/18 Yes lactose Adverse Reaction Unknown 12/17/18 Yes Physical Exam: PE: Constitutional: Well developed, well nourished, no acute distress, non-toxic appearance. HENT: Normocephalic, atraumatic, bilateral external ears normal, oropharynx moist, no oral exudates, nose normal. Eyes: PERRLA, EOMI, conjunctiva normal, no discharge. [] Neck: Normal range of motion, no tenderness, supple, no stridor. Cardiovascular:Heart rate regular rhythm, no murmur Lungs & Thorax: Bilateral breath sounds clear to auscultation [] Abdomen: Bowel sounds normal, soft, no tenderness, no masses, no pulsatile masses. Skin: Warm, dry, no erythema, no rash. [] Back: No tenderness, no CVA tenderness. Extremities: No tenderness, no cyanosis, no clubbing, ROM intact, no edema. [] Neurologic: Alert and oriented X 3, normal motor function, normal sensory function, no focal deficits noted. [] Psychologic: Affect normal, judgement normal, mood normal. [] EKG: EKG: [] Radiology/Procedures: Radiology/Procedures: [] Course & Med Decision Making: Course & Med Decision Making Pertinent Labs and Imaging studies reviewed. (See chart for details) [] Dragon Disclaimer: Dragon Disclaimer: This electronic medical record was generated, in whole or in part, using a voice recognition dictation system. Departure Departure Impression: Primary Impression: Chest pain Referrals: LUIS ALBERTO ZAMARRIPA MD (PCP) Justicifation of Admission Dx: Justifications for Admission: Justification of Admission Dx: JULIET Myers MD Aug 23, 2019 13:42
[2019-08-23] MEDS ORDERED: LABETALOL 20 MG/4 ML DISP.SYRIN. IVP ONE (13:45)
[2019-08-23 14:45] VITALS: BP 179/132
--- NOTE | 2019-08-26 06:28 | EKG ---
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
== END 2019-08-23 15:31 | disposition home or self-care (01) ==
LOC: ER 13:09
DX: R07.89 Other chest pain (principal); F41.9 Anxiety disorder, unspecified; F32.9 Major depressive disorder, single episode, unspecified; I10 Essential (primary) hypertension; Z91.011 Allergy to milk products; Z88.6 Allergy status to analgesic agent
CPT/HCPCS: 36415; 85379; 93005; 99284

== ENCOUNTER 2019-08-27 14:22 | Emergency (ER) | payer MEDICAID ==
[~2019-08-27] VITALS: Ht 160 cm; Wt 94.0 kg
[2019-08-27] MEDS ORDERED: METOPROLOL TART IMMED RELEASE 25 MG TABLET. PO ONE (16:30)
[2019-08-27] MEDS ORDERED: IV NORMAL SALINE 1000ML BAG 1,000 ML IV ONE (16:45)
[2019-08-27 16:56] LABS: BILIRUBIN,URINE SMALL (NEG); CLARITY,URINE CLEAR; COLOR,URINE AMBER; NITRITE,URINE NEGATIVE (NEG); PROTEIN,URINE 30 mg/dL (NEG-TRACE)
[2019-08-27 17:14] LABS: SQUAMOUS EPITHELIAL CELL,UR MOD /LPF
[2019-08-27 17:15] LABS: BASO % 1 % (0-3); EOS % 1 % (0-3); HEMATOCRIT 40.5 % (36.0-47.0); HEMOGLOBIN 14.4 g/dL (12.0-15.5); LYMPH # 1.4 x10^3/uL (1.0-4.8); LYMPH % 26 % (24-48); MEAN CORPUSCULAR HEMOGLOBIN 32 pg (25-35); MEAN CORPUSCULAR HGB CONC 36 g/dL (31-37); MEAN CORPUSCULAR VOLUME 90 fL (79-100); MONO # 0.5 x10^3/uL (0.0-1.1); MONO % 9 % (0-9); NEUT # 3.5 x10^3/uL (1.8-7.7); NEUT % 64 % (31-73); PLATELET COUNT 198 x10^3/uL (140-400); RED BLOOD COUNT 4.48 x10^6/uL (3.50-5.40); RED CELL DISTRIBUTION WIDTH 13.2 % (11.5-14.5); WHITE BLOOD COUNT 5.5 x10^3/uL (4.0-11.0)
[2019-08-27 17:15] LABS: BACTERIA,URINE FEW /HPF (0-FEW); RBC,URINE 0 /HPF (0-2)
--- NOTE | 2019-08-27 17:37 | PHYS DOC ---
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 Patient states she is supposed to be taking venlafaxine for her anxiety but she never filled it because previously when she took it medication did not help her. She reports that her doctor recently discontinued her Xanax and started her on the venlafaxine. She denies any fever, cough, nasal congestion, shortness of breath, wheezing, dysuria, hematuria, increased urinary frequency, or low back pain. She denies any irregular vaginal discharge, vaginal odor, or vaginal bleeding. Patient was prescribed Keflex for urinary tract infection last week but she never filled the medication. She currently rates her pain in her throat a 7 out of 10 on the pain scale, she denies any alleviating factors, the pain is worse with swallowing. Review of Systems: Review of Systems: Constitutional: Denies fever or chills. [] Eyes: Denies change in visual acuity. [] HENT: Denies nasal congestion: See HPI Respiratory: Denies cough or shortness of breath. [] Cardiovascular: Denies chest pain or edema. [] GI: Denies abdominal pain, nausea, vomiting, or diarrhea. [] : Denies dysuria.; See HPI [] Musculoskeletal: Denies back pain or joint pain. [] Integument: Denies rash. [] Neurologic: Denies headache, focal weakness or sensory changes. [] Psychiatric: Denies depression; see HPI Heart Score: Risk Factors: Risk Factors: DM, Current or recent (<one month) smoker, HTN, HLP, family history of CAD, obesity. Risk Scores: Score 0 - 3: 2.5% MACE over next 6 weeks - Discharge Home Score 4 - 6: 20.3% MACE over next 6 weeks - Admit for Clinical Observation Score 7 - 10: 72.7% MACE over next 6 weeks - Early Invasive Strategies Current Medications: Current Medications Medications (Trade) Dose Ordered Sig/Maury Start Time Stop Time Status Last Admin Dose Admin Metoprolol Tartrate (Lopressor) 25 mg 1X ONCE 08/27/19 16:30 08/27/19 16:35 DC 08/27/19 17:02 25 MG Sodium Chloride 1,000 ml @ 1,000 mls/hr 1X ONCE 08/27/19 16:45 08/27/19 17:44 08/27/19 17:03 1,000 MLS/HR Allergies: Allergies: Allergies Coded Allergies Type Severity Reaction Last Updated Verified lisinopril Allergy Intermediate 12/17/18 Yes lactose Adverse Reaction Unknown 12/17/18 Yes Physical Exam: PE: Constitutional: Well developed, well nourished, no acute distress, appears anxious HENT: Normocephalic, atraumatic, bilateral external ears normal, bilateral TMs normal, mild erythema posterior pharynx with cobblestone appearance, no oral exudates, nose normal. [] Eyes: PERRLA, EOMI, conjunctiva normal, no discharge. [] Neck: Normal range of motion, no tenderness, supple, no stridor. [] Cardiovascular:Heart rate regular rhythm, no murmur [] Lungs & Thorax: Bilateral breath sounds clear to auscultation, Respirations even and unlabored, no retractions, no respiratory distress [] Abdomen: soft, no tenderness, no masses Skin: Warm, dry, no erythema, no rash. [] Back: No tenderness Extremities: No cyanosis, ROM intact Neurologic: Alert and oriented X 3, no focal deficits noted. [] Psychologic: Affect normal, judgement normal, mood normal. [] Current Patient Data: Labs: Laboratory Tests Test 08/27/19 16:30 08/27/19 17:04 Urine Collection Type Unknown Urine Color Carie Urine Clarity Clear Urine pH 6.0 (<5.0-8.0) Urine Specific [place] >=1.030 (1.000-1.030) Urine Protein 30 mg/dL (NEG-TRACE) Urine Glucose (UA) Negative mg/dL (NEG) Urine Ketones (Stick) >=80 mg/dL (NEG) Urine Blood Trace (NEG) Urine Nitrite Negative (NEG) Urine Bilirubin Small (NEG) Urine Urobilinogen Dipstick 1.0 mg/dL (0.2 mg/dL) Urine Leukocyte Esterase Negative (NEG) Urine RBC 0 /HPF (0-2) Urine WBC 1-4 /HPF (0-4) Urine Squamous Epithelial Cells Mod /LPF Urine Bacteria Few /HPF (0-FEW) Urine Mucus Marked /LPF White Blood Count 5.5 x10^3/uL (4.0-11.0) Red Blood Count 4.48 x10^6/uL (3.50-5.40) Hemoglobin 14.4 g/dL (12.0-15.5) Hematocrit 40.5 % (36.0-47.0) Mean Corpuscular Volume 90 fL (79-100) Mean Corpuscular Hemoglobin 32 pg (25-35) Mean Corpuscular Hemoglobin Concent 36 g/dL (31-37) Red Cell Distribution Width 13.2 % (11.5-14.5) Platelet Count 198 x10^3/uL (140-400) Neutrophils (%) (Auto) 64 % (31-73) Lymphocytes (%) (Auto) 26 % (24-48) Monocytes (%) (Auto) 9 % (0-9) Eosinophils (%) (Auto) 1 % (0-3) Basophils (%) (Auto) 1 % (0-3) Neutrophils # (Auto) 3.5 x10^3/uL (1.8-7.7) Lymphocytes # (Auto) 1.4 x10^3/uL (1.0-4.8) Monocytes # (Auto) 0.5 x10^3/uL (0.0-1.1) Eosinophils # (Auto) 0.0 x10^3/uL (0.0-0.7) Basophils # (Auto) 0.0 x10^3/uL (0.0-0.2) Laboratory Tests 08/27/19 17:04 Vital Signs: Vital Signs Date Time Temp Pulse Resp B/P (MAP) Pulse Ox O2 Delivery O2 Flow Rate FiO2 08/27/19 17:02 85 182/136 08/27/19 16:17 100 Room Air 08/27/19 16:16 22 08/27/19 15:28 97.5 97.5 EKG: EKG: [] Radiology/Procedures: Radiology/Procedures: [] Course & Med Decision Making: Course & Med Decision Making Pertinent Labs and Imaging studies reviewed. (See chart for details) 29-year-old female presents the emergency department with complaints of a sore throat for 2 days, and foul-smelling urine. She also complains of anxiety. Patient reported noncompliance with previous medications that were prescribed for bacterial vaginosis at [facility] ER and a urinary tract infection at this ER. She also reports medication noncompliance with her blood pressure and anxiety medication. CBC was unremarkable: CMP revealed a potassium of 3.2, calcium of 8.2, otherwise unremarkable; UA was concerning for greater than 80 ketones and 1-4 white blood cells with few bacteria. Rapid strep test is negative. I advised the patient of the laboratory findings, recommend that the patient takes Zyrtec, Claritin, or Korin as needed for relief of postnasal drainage also recommend salt water gargles. Encouraged the patient to take the previous medications that were prescribed to her for her urinary tract infection and also encouraged the patient to take her anxiety and blood pressure medicine as prescribed. In the emergency department patient's blood pressure was treated with 25 mg of p.o. metoprolol and 10 mg of IV labetalol. Her hypokalemia was treated with 40 mEq of potassium. She was also given 1 L of normal saline. Patient verbalized an understanding of home care, medications, follow-up, and return to ED instructions and was in agreement with the plan of care. [] Dragon Disclaimer: Dragon Disclaimer: This electronic medical record was generated, in whole or in part, using a voice recognition dictation system. Departure Departure Impression: Primary Impression: UTI (urinary tract infection) Qualified Codes: N39.0 - Urinary tract infection, site not specified Additional Impressions: Hypertension Qualified Codes: I10 - Essential (primary) hypertension Anxiety Post-nasal drainage Disposition: HOME, SELF-CARE Condition: STABLE Referrals: LUIS ALBERTO ZAMARRIPA MD (PCP) Patient Instructions: Anxiety and Panic Attacks, [id number], Hypertension, Urinary Tract Infection, [id number], Viral and Bacterial Pharyngitis, [id number] Additional Instructions: Take the Keflex that was previously prescribed for your urinary tract infection as prescribed. Avoid bladder irritants such as caffeine, carbonation, and spicy foods. Increase clear fluids. Recommend that you take [id number] his antihistamine such as Zyrtec or Claritin for relief of the postnasal drainage, you might try salt water gargles as needed for throat discomfort. You need to take your blood pressure medication and your anxiety medication as prescribed. Follow up with your primary care doctor if symptoms persist, return to the ER if symptoms worsen. Justicifation of Admission Dx: Justifications for Admission: Justification of Admission Dx: MURPHY Quezada APRN Aug 27, 2019 17:37
[2019-08-27 17:48] LABS: CALCIUM 8.2 mg/dL (8.5-10.1); GFR 79.3; POTASSIUM 3.2 mmol/L (3.5-5.1)
[2019-08-27 17:53] LABS: ALBUMIN 3.8 g/dL (3.4-5.0); ALBUMIN/GLOBULIN RATIO 1.1 (1.0-1.7); TOTAL BILIRUBIN 0.8 mg/dL (0.2-1.0); TOTAL PROTEIN 7.3 g/dL (6.4-8.2)
[2019-08-27] MEDS ORDERED: POTASSIUM CHLORIDE 20 MEQ TABLET.ER. PO ONE (18:00)
[2019-08-27] MEDS ORDERED: LABETALOL 20 MG/4 ML DISP.SYRIN. IVP ONE (18:15)
[2019-08-27 18:37] VITALS: BP 162/109
== END 2019-08-27 19:15 | disposition home or self-care (01) ==
LOC: ER 14:22
DX: N39.0 Urinary tract infection, site not specified (principal); I10 Essential (primary) hypertension; F41.9 Anxiety disorder, unspecified; L53.9 Erythematous condition, unspecified; F32.9 Major depressive disorder, single episode, unspecified; Z98.890 Other specified postprocedural states; Z87.891 Personal history of nicotine dependence; Z88.6 Allergy status to analgesic agent; Z88.8 Allergy status to other drugs, medicaments and biological substances
CPT/HCPCS: 36415; 80053; 81001; 85025; 87070; 87880; 96374; 99283; J3490; J7030